=== PATIENT | male | born 1935 | race Caucasian/White ===

== ENCOUNTER → 2018-02-12 | Outpatient (CLI) | payer MEDICARE | END | disposition home or self-care (01) | LOC: RAH 10:28 | PROVIDERS: ATTEND Physical Medicine & Rehabilitation | DX: M47.26 Other spondylosis with radiculopathy, lumbar region (principal); M48.061 Spinal stenosis, lumbar region without neurogenic claudication; M25.78 Osteophyte, vertebrae | CPT/HCPCS: 72110 ==

== ENCOUNTER → 2018-05-30 | Outpatient (CLI) | payer MEDICARE | END | disposition home or self-care (01) | LOC: RAH 14:36 | PROVIDERS: ATTEND Physical Medicine & Rehabilitation | DX: S22.31XA Fracture of one rib, right side, initial encounter for closed fracture (principal); I70.0 Atherosclerosis of aorta; Z95.0 Presence of cardiac pacemaker; X58.XXXA Exposure to other specified factors, initial encounter; Y93.89 Activity, other specified; Y92.89 Other specified places as the place of occurrence of the external cause; Y99.8 Other external cause status | CPT/HCPCS: 71046; 71100 ==

== ENCOUNTER → 2019-05-07 | Outpatient (CLI) | payer MEDICARE | END | disposition home or self-care (01) | LOC: SHCH 15:01 | PROVIDERS: ATTEND Internal Medicine Cardiovascular Disease | DX: R55 Syncope and collapse (principal) | CPT/HCPCS: 93306; 93880 ==

== ENCOUNTER → 2019-05-09 | Outpatient (CLI) | payer MEDICARE ==
[~2019-05-09] VITALS: Ht 175.3 cm; Wt 69.4 kg
[~2019-05-09] MED LIST: REGADENOSON 0.4 MG/5 ML PF SYG IVP SCH
== END | disposition home or self-care (01) ==
LOC: SHCH 07:49
PROVIDERS: ATTEND Internal Medicine Cardiovascular Disease
DX: R55 Syncope and collapse (principal)
CPT/HCPCS: 78452; 93017; 96374; A9500 ×2; J2785

== ENCOUNTER → 2020-03-10 | Outpatient (CLI) | payer MEDICARE | END | disposition home or self-care (01) | LOC: OIH 13:13 | PROVIDERS: ATTEND Physical Medicine & Rehabilitation | DX: R07.81 Pleurodynia (principal); M19.011 Primary osteoarthritis, right shoulder; M47.814 Spondylosis without myelopathy or radiculopathy, thoracic region | CPT/HCPCS: 71100 ==

== ENCOUNTER → 2020-05-20 | Outpatient (CLI) | payer MEDICARE | END | disposition home or self-care (01) | LOC: SHCH 15:18 | PROVIDERS: ATTEND Internal Medicine Cardiovascular Disease | DX: I35.8 Other nonrheumatic aortic valve disorders (principal); I51.7 Cardiomegaly; I65.23 Occlusion and stenosis of bilateral carotid arteries; I10 Essential (primary) hypertension | CPT/HCPCS: 93306; 93880 ==

== ENCOUNTER 2020-11-17 13:50 | Observation (INO) | payer MEDICARE ==
[~2020-11-17] VITALS: Ht 177.8 cm; Wt 76.1 kg
[2020-11-17 17:00] LABS: BASOPHILS % (AUTO) 0.8 % (0.0-5.0); EOSINOPHILS % (AUTO) 2.4 % (0.0-8.0); HEMATOCRIT 38.3 % (42-54); LYMPHOCYTES % (AUTO) 35.9 % (21.0-51.0); MEAN CORPUSCULAR HEMOGLOBIN 32.2 pg (27.0-33.0); MEAN CORPUSCULAR HGB CONC 33.9 g/dL (32.0-36.0); MEAN CORPUSCULAR VOLUME 94.8 fL (79-99); MONOCYTES % (AUTO) 11.6 % (3.0-13.0); PLATELET COUNT (AUTO) 211 K/uL (130-400); RED BLOOD CELL COUNT(AUTO) 4.04 MIL/uL (4.50-6.20); RED CELL DISTRIBUTION WIDTH 13.9 % (11.0-15.5); WHITE BLOOD COUNT (AUTO) 6.6 K/uL (4.8-10.8)
[2020-11-17 17:05] LABS: CARBON DIOXIDE 29 mmol/L (21-32); CHLORIDE 103 mmol/L (101-111); CREATININE 1.3 mg/dL (0.5-1.5); GLOMERULAR FILTR. RATE CALC 56 mL/min (>60); GLUCOSE,RANDOM 89 mg/dL (70-105); POTASSIUM 3.5 mmol/L (3.5-5.1); SODIUM SERUM 140 mmol/L (136-145); UREA NITROGEN, BLOOD 23 mg/dL (7-18)
[2020-11-17 17:15] VITALS: BP 185/85
[2020-11-17 17:16] LABS: ALANINE AMINOTRANSFERASE 22 U/L (12-78); ALBUMIN 3.8 g/dL (3.5-5.0); ASPARTATE AMINOTRANSFERASE 25 U/L (10-37); BILIRUBIN,TOTAL 0.8 mg/dL (0.2-1.0); CREATINE KINASE, TOTAL 51 U/L (21-232); MYOGLOBIN 73 ng/mL (10-92); TOTAL PROTEIN, SERUM 7.8 g/dL (6.0-8.3); TROPONIN I < 0.04 ng/mL (0.00-0.06)
[2020-11-17] MEDS ORDERED: NITROGLYCERIN 0.4 MG SL TAB SL PRN (17:45)
[2020-11-17] MEDS ORDERED: CLONIDINE HCL 0.1 MG TABLET PO PRN (17:45)
[2020-11-17] MEDS ORDERED: REGADENOSON 0.4 MG/5 ML PF SYG IVP SCH (18:15)
[2020-11-17 19:57] VITALS: BP 170/88
[2020-11-17 21:19] LABS: CREATINE KINASE, TOTAL 55 U/L (21-232); MYOGLOBIN 94 ng/mL (10-92); TROPONIN I < 0.04 ng/mL (0.00-0.06)
[2020-11-17] MEDS ORDERED: GABA300S PO (21:30)
[2020-11-17] MEDS ORDERED: AMLO-257 PO (21:30)
[2020-11-17] MEDS ORDERED: TRAZ-185 PO (21:30)
[2020-11-17] MEDS ORDERED: APIX2.5T PO (21:30)
[2020-11-17] MEDS ORDERED: VALS80TA30 PO (21:30)
[2020-11-17] MEDS ORDERED: LEVO200C2 PO (21:30)
[2020-11-17] MEDS ORDERED: CARV25TA PO (21:30)
[2020-11-17] MEDS ORDERED: AEC81 PO (21:34)
[2020-11-17] MEDS ORDERED: TEMAZEPAM 7.5 MG CAPSULE PO ONE (22:52)
[2020-11-17] MEDS ORDERED: TEMAZEPAM 7.5 MG CAPSULE PO PRN (23:00)
[2020-11-17 23:34] VITALS: BP 155/89
[2020-11-18 03:51] VITALS: BP 169/80
[2020-11-18 08:17] VITALS: BP 162/79
[2020-11-18 09:19] LABS: CREATINE KINASE, TOTAL 52 U/L (21-232); MYOGLOBIN 104 ng/mL (10-92); TROPONIN I < 0.04 ng/mL (0.00-0.06)
[2020-11-18] MEDS: GABAPENTIN 300 MG CAPSULE PO SCH (11:45)
[2020-11-18 12:00] VITALS: BP 167/77
[2020-11-18] MEDS: LOSARTAN 50 MG TABLET PO SCH ×2 (15:16→21:28)
[2020-11-18 15:19] LABS: CREATINE KINASE, TOTAL 71 U/L (21-232); MYOGLOBIN 94 ng/mL (10-92); TROPONIN I < 0.04 ng/mL (0.00-0.06)
[2020-11-18 16:00] VITALS: BP 173/77
[2020-11-18] MEDS ORDERED: TRAZODONE HCL 50 MG TAB PO SCH (17:00)
[2020-11-18 20:00] VITALS: BP 157/72
[2020-11-19] VITALS: BP 122/79
[2020-11-19 04:00] VITALS: BP 134/76
[2020-11-19] MEDS ORDERED: LEVOTHYROXINE 100 MCG TABLET PO SCH (06:30)
[2020-11-19 08:00] VITALS: BP 121/60
[2020-11-19] MEDS: GABAPENTIN 300 MG CAPSULE PO SCH (08:06)
[2020-11-19] MEDS: LOSARTAN 50 MG TABLET PO SCH (08:08)
[2020-11-19] MEDS ORDERED: CARVEDILOL 25 MG TABLET PO SCH (09:00)
[2020-11-19] MEDS ORDERED: AMLODIPINE BESYLATE 5 MG TAB PO SCH (09:00)
[2020-11-19] MEDS ORDERED: ASPIRIN 81 MG EC TAB PO SCH (09:00)
[2020-11-19] MEDS ORDERED: APIXABAN 2.5 MG TABLET PO SCH (09:00)
[2020-11-19 11:37] VITALS: BP 185/86
== END 2020-11-19 11:34 ==
LOC: EDH 13:50 → OBSVTOIN 13:51 → EDHIP 13:51 → INTOOBSV 13:51 → 4CH 17:11
PROVIDERS: ADMIT Hospitalist; ATTEND Hospitalist
DX: I25.110 Atherosclerotic heart disease of native coronary artery with unstable angina pectoris (principal); I10 Essential (primary) hypertension; I48.0 Paroxysmal atrial fibrillation; E78.5 Hyperlipidemia, unspecified; E03.9 Hypothyroidism, unspecified; D68.59 Other primary thrombophilia; Z87.891 Personal history of nicotine dependence; Z95.0 Presence of cardiac pacemaker; Z95.5 Presence of coronary angioplasty implant and graft; Z95.828 Presence of other vascular implants and grafts; Z79.01 Long term (current) use of anticoagulants; Z79.899 Other long term (current) drug therapy
CPT/HCPCS: 36415 ×2; 78452; 80053; 82550 ×4; 83874 ×4; 84484 ×4; 85025; 93005; 93017; 93306; 93356; 99284; A9500 ×2; G0378 ×45; J2785; 96374

== ENCOUNTER → 2021-12-30 | Outpatient (CLI) | payer MEDICARE ==
[~2021-12-30] MED LIST changes: +AEC81 PO; +AMLO-257 PO; +APIX2.5T PO; +CARV25TA PO; +GABA300S PO; +LEVO200C2 PO; -REGADENOSON 0.4 MG/5 ML PF SYG IVP SCH; +TRAZ-185 PO; +VALS80TA30 PO
== END | disposition home or self-care (01) ==
LOC: SHCH 13:03
PROVIDERS: ATTEND Internal Medicine Cardiovascular Disease
DX: I51.7 Cardiomegaly (principal); I48.0 Paroxysmal atrial fibrillation; E78.5 Hyperlipidemia, unspecified; I10 Essential (primary) hypertension
CPT/HCPCS: 93306

== ENCOUNTER → 2022-01-03 | Outpatient (CLI) | payer MEDICARE | LOC: SHCH 12:45 | PROVIDERS: ATTEND Internal Medicine Cardiovascular Disease | DX: I25.10 Atherosclerotic heart disease of native coronary artery without angina pectoris (principal); I65.23 Occlusion and stenosis of bilateral carotid arteries | CPT/HCPCS: 93880 ==